=== PATIENT | male | born 1945 | race Caucasian/White ===

== ENCOUNTER 2023-12-16 08:31 | Day surgery (SDC) | payer MEDICARE, OTHER, SELFPAY ==
[2023-12-08 08:06] VITALS: BMI 32.7
[2023-12-16] VITALS (20 sets, daily range): BP systolic 103–176; BP diastolic 56–115; BMI 31.9
--- NOTE | 2023-12-16 10:25 | ITS.CL.CATH ---
[facility] - Catheterization
Cardiac Catheterization
Procedure Report:
CARDIAC CATHETERIZATION REPORT
Date of Procedure: 12/16/2019
Referring: Tigist Saenz MD
Indication: Angina with abnormal stress test
HEMODYNAMIC DATA
AO: 144/74
LV: 144/16
LEFT VENTRICULOGRAPHY: Inferobasal akinesis extending to the mid inferior wall with otherwise hyperdynamic wall motion with EF 57%
CORONARY ANGIOGRAPHY
Dominance: Right
Left Main: Normal
LAD: Mild luminal irregularities in the proximal and mid LAD. There is a 30% distal LAD stenosis. The large first diagonal branch has a long 30-40% proximal stenosis
Circumflex: The circumflex gives rise to a large OM1, a twig like OM 2, and a medium sized bifurcating OM 3 before terminating in the AV groove with a tiny posterolateral branch. There is 80% distal circumflex stenosis just proximal to the takeoff
of OM 3. There is 40% ostial OM1 stenosis and 30% mid OM1 stenosis.
RCA: The RCA is occluded in the midportion. The RPDA fills via [id number] collaterals with faint flow into a posterolateral branch
Angioplasty: At the conclusion the diagnostic study, we proceeded with PCI of the distal circumflex 80% stenosis. Heparin was used for anticoagulation. Plavix 600 mg was administered the procedure conclusion. A 6 Kosovan EBU 3.5 guide catheter was
used. A BMW wire was passed into the OM 3 with surprising ease. Predilatation was accomplished with a 2.25 x 8 NC Euphora to 12 alecia. A 3.0 x 12 [employer] [place] JOSÉ MIGUEL was deployed across the lesion into OM 3 at 15 alecia then postdilated with a 3.25 NC
Euphora to 15 alecia proximally and 10 alecia distally. The final angiographic result was outstanding. There were no procedural complications.
Closure Device: None-the procedure was performed via the right radial artery. The Silvano's test was normal prior to the procedure.
Radiation (mGy): 730
DAP (cm2.Gy): 61.9
Fluoroscopy time: 4.9 minutes
CONCLUSIONS
1: Inferior akinesis with EF 57%
2: Multivessel CAD as described. There would be no survival advantage to CABG as the LAD proper does not have significant disease. Accordingly, we proceeded with intervention to treat the distal circumflex stenosis
3. Successful stenting of 80% distal circumflex lesion using 3.0 x 12 [employer] [place] JOSÉ MIGUEL with outstanding angiographic result
4. Recommend 1 week of triple therapy (Eliquis, Plavix, aspirin) then stop aspirin and treat with Eliquis and Plavix for 12 months after which time aspirin can be resumed and Plavix stopped. Will increase rosuvastatin to 20mg with goal LDL <70 and
ideally near 55
Copy to: Tigist Saenz MD, Chris Tillman, DO
Dalton Dobbins MD, [facility], [facility]
[2023-12-16 13:22] LABS: ACT-LR - POC > 397 Seconds (116-155)
--- NOTE | 2023-12-16 14:19 | W.PN.UPDATE ---
Update Note
Progress Note Update
78 yo WM s/p PCI LCx (same day). He feels good, no cp, sob, kimi diet, voiding, amb w/o dizziness, EKG Afib with SVR no sig ST changes, R rad site c/d/i. He will be on triple therapy asa, plavix and eliquis for 1 week then stop asa. He will increase
rosuvastatin to 20mg daily. Cardiac rehab c/s. Activity restrictions reviewed. He will f/u Dr. Saenz in 2-4 weeks. He is for d/c home after 315pm.
CONCLUSIONS
1: Inferior akinesis with EF 57%
2: Multivessel CAD as described. There would be no survival advantage to CABG as the LAD proper does not have significant disease. Accordingly, we proceeded with intervention to treat the distal circumflex stenosis
3. Successful stenting of 80% distal circumflex lesion using 3.0 x 12 [employer] [place] JOSÉ MIGUEL with outstanding angiographic result
4. Recommend 1 week of triple therapy (Eliquis, Plavix, aspirin) then stop aspirin and treat with Eliquis and Plavix for 12 months after which time aspirin can be resumed and Plavix stopped. Will increase rosuvastatin to 20mg with goal LDL <70 and
ideally near 55
Copy to: Tigist Saenz MD, Chris Tillman, DO
== END 2023-12-16 15:15 | disposition home or self-care (01) ==
LOC: CATH 08:31
PROVIDERS: ATTENDING PHYSICIAN Internal Medicine Cardiovascular Disease; FAMILY PHYSICIAN Family Medicine; OTHER PHYSICIAN Internal Medicine Cardiovascular Disease
DX: I25.119 Atherosclerotic heart disease of native coronary artery with unspecified angina pectoris (principal); I25.84 Coronary atherosclerosis due to calcified coronary lesion; I10 Essential (primary) hypertension; E66.9 Obesity, unspecified; R73.03 Prediabetes; R06.09 Other forms of dyspnea; R07.89 Other chest pain; I48.19 Other persistent atrial fibrillation; I70.0 Atherosclerosis of aorta; Z68.32 Body mass index [BMI] 32.0-32.9, adult; Z86.711 Personal history of pulmonary embolism; Z86.718 Personal history of other venous thrombosis and embolism; M41.9 Scoliosis, unspecified; G62.9 Polyneuropathy, unspecified; K22.70 Barrett's esophagus without dysplasia; K21.9 Gastro-esophageal reflux disease without esophagitis; Z85.46 Personal history of malignant neoplasm of prostate; Z90.79 Acquired absence of other genital organ(s)
CPT/HCPCS: 93005; 93458; C1725; C1769; C1874; C1894; C9600; Q9967

== ENCOUNTER 2024-03-18 10:00 | Emergency (ER) | payer MEDICARE, OTHER, SELFPAY ==
[2024-03-18 10:04] VITALS: BP 161/90
[2024-03-18 10:43] VITALS: BMI 30.4
[2024-03-18 10:48] VITALS: BP 135/83
--- NOTE | 2024-03-18 10:59 | EDRN ---
IV VAT RN paged at this time. After 2 attempts unable to get IV access.
[2024-03-18 11:00] VITALS: BP 166/84
--- NOTE | 2024-03-18 11:02 | EDRN ---
Dr. Carlos in room w/ pt. BOth arms wrapped in warm blankets as requested by IV VAT KAREN Pierce.
--- NOTE | 2024-03-18 11:17 | EDRN ---
VAT RN Kari in room w/ pt attempting IV access.
[2024-03-18 11:26] LABS: Glucose - Point of Care 120 mg/dl (70-99)
[2024-03-18] MEDS: NSS 1000 IV (11:29)
[2024-03-18 11:40] LABS: % Basophils 0.4 % (0-2); % Immature Granulocytes 0.4 % (0-0.5); % Lymphocytes 16.1 % (20.5-51.1); % Monocytes 11.3 % (1.7-9.3); % Neutrophils 69.8 % (42.2-75.2); Absolute Eosinophils 0.1 10^3/uL (0-0.7); Absolute Lymphocytes 1.1 10^3/uL (1.2-3.4); Absolute Monocytes 0.8 10^3/uL (0.1-0.6); Absolute Neutrophils 4.8 10^3/uL (1.4-6.5); Hematocrit 41.9 % (39.0-52.0); Hemoglobin 14.6 g/dL (13.0-18.0); Mean Corp Hgb Conc. 34.8 g/dL (33.0-37.0); Mean Corpuscular Hgb 29.9 pg (27.0-31.0); Mean Corpuscular Volume 85.7 fL (80.0-94.0); Mean Platelet Volume 10.8 fL (7.4-10.4); Nucleated Red Blood Cells % 0 % (-); Platelet Count 177 10^3/uL (130-400); Red Blood Cell Count 4.89 10^6/uL (4.70-6.10); Red Cell Dist. Width 12.7 % (11.5-14.5); White Blood Cell Count 6.9 10^3/uL (4.8-10.8)
[2024-03-18 11:45] LABS: ALT (SGPT) 25 U/L (0-50); AST (SGOT) 25 U/L (17-59); Albumin 4.3 g/dl (3.5-5.0); Alkaline Phosphatase 59 U/L (38-126); Blood Urea Nitrogen 21 mg/dl (9-20); Calcium 9.6 mg/dl (8.4-10.2); Carbon Dioxide 29 mmol/L (22-30); Chloride 104 mmol/L (98-107); Estimated Creatinine Clearance 99 ml/min; Glucose 115 mg/dl (70-99); Potassium 4.6 mmol/L (3.5-5.1); Sodium 143 mmol/L (135-145); Total Bilirubin 0.8 mg/dl (0.2-1.3); Total Protein 6.8 g/dl (6.3-8.2); eGFR > 60.00
[2024-03-18 11:46] VITALS: BP 155/92
[2024-03-18 12:00] VITALS: BP 138/95
--- NOTE | 2024-03-18 13:22 | EDRN ---
Pt's friend came out of room to request for pt about his status. This RN TT'd Dr. Carlos at this time.
--- NOTE | 2024-03-18 13:23 | EDRN ---
Dr. Carlos responded that he will be over to see pt in a few minutes.
[2024-03-18 13:24] VITALS: BP 188/87
--- NOTE | 2024-03-18 13:27 | EDRN ---
Pt was asking about why the CT scan was done and was informed by this RN that his symptoms of dizziness and gait dysfunction would warrant a CT scan to look at the brain as the symptoms are neurological.
--- NOTE | 2024-03-18 13:39 | ED.GENMED ---
History of Present Illness
General
Chief Complaint: Dizziness
Time Seen by Provider: 03/18/24 10:57
History of Present Illness
History of Present Illness:
HPI: The patient presents with dizziness. He woke up this morning feeling well around 7:30 AM and later on in the morning had rather debilitating dizziness. At 1 point he fell to the side. He has no significant dizziness at rest.
EXAM:
GENERAL: Well appearing in no distress
HEENT: Moist oral mucosa
CARDIOVASCULAR: No murmurs, bradycardic and slightly irregular, No chest wall tenderness
PULMONARY: No respiratory distress, breath sounds are clear and equal
ABDOMEN: Soft with no peritoneal signs, no tenderness
NEUROLOGIC: Excellent strength all extremities, no coordination deficits, normal finger-nose testing
PSYCHIATRIC: Appropriate mental status, normal insight and judgement
EXTREMITIES: Nontender, no edema, moves all extremities equally
SKIN: No rash, no lesions
TIME OF INITIAL ENCOUNTER: 11 AM
NUMBER AND COMPLEXITY OF PROBLEMS ADDRESSED AT THE ENCOUNTER
� Chronic conditions affecting care: Atrial fibrillation on Eliquis
� Acute Exacerbation and/or Progression of Chronic Illness: This is an acute problem
� Differential Diagnosis includes: Positional vertigo, doubt CVA as he has an NIHSS of 0, labyrinthitis
AMOUNT AND/OR COMPLEXITY OF DATA TO BE REVIEWED AND ANALYZED
� I performed an independent evaluation of and my interpretation is:
EKG: A-fib 57, left axis deviation, no significant change from 03/18/2024
CT: Head CT shows no acute abnormality
X-rays:
Laboratory Studies: CBC normal, chemistries unremarkable
Other:
� Review of other/old records: I reviewed records, the patient had a cath this past September that showed inferior akinesis with an EF of 57%, a stent was placed in the distal circumflex
� Clinical information was obtained by an independent historian: Spoke to friend at bedside
� Prescriptions/Medications Considered but not given:
� Further testing considered but not performed:
RISK OF COMPLICATIONS AND/OR MORBIDITY OR MORTALITY OF PATIENT MANAGEMENT
� Social determinants of health affecting care: Lives at home
� Discussion with other providers:
� Escalation of care including admission/observation vs risk of discharge considered: Given patient's age and the fact that he is on Eliquis, CT imaging obtained which was unremarkable. On reassessment at 1:45 PM, the patient is
well-appearing. He remains to have a stroke scale of 0. He does not appear to be in any distress.
Phy Exam
Physical Exam
Physical Exam:
See HPI
Course
Orders/Labs/Results
Orders:
Orders
03/18/24 10:50
Cardiac Monitoring- Treatment ONCE
IV Insert/Care/Rem.- Treatment PRN
03/18/24 11:01
Electrocardiogram (*1) Urgent
Reason for Study: Chest Pain
EKG- Treatment ONCE
03/18/24 11:08
0.9% Sodium Chloride 1000 ml [Nss] 1,000 ml IV BOLUS
03/18/24 11:09
CT Head W/o Iv Contrast Urgent
Comment:
Reason For Exam: severe dizzy; fell to one side
03/18/24 11:21
Complete Blood Count/With Diff Urgent
Comprehensive Metabolic Panel Urgent
Abnormal Lab Results
03/18/24 03/18/24
11:21 11:26
MPV 10.8 H fL
(7.4-10.4)
Absolute Lymphs (auto) 1.1 L 10^3/uL
(1.2-3.4)
Absolute Monos (auto) 0.8 H 10^3/uL
(0.1-0.6)
Lymphocytes % 16.1 L %
(20.5-51.1)
Monocytes % 11.3 H %
(1.7-9.3)
BUN 21 H mg/dl
(9-20)
Glucose 115 H mg/dl
(70-99)
POC Glucose 120 H mg/dl
(70-99)
03/18/24 11:21
03/18/24 11:21
Vital Signs
Initial and Last Documented VS:
Initial Vital Signs
Temp Pulse Resp BP Pulse Ox
99.1 F 65 18 161/90 97
03/18/24 10:04 03/18/24 10:04 03/18/24 10:04 03/18/24 10:04 03/18/24 10:04
Last Documented Vital Signs
Temp Pulse Resp BP Pulse Ox
99.1 F 64 16 188/87 98
03/18/24 10:04 03/18/24 13:24 03/18/24 13:24 03/18/24 13:24 03/18/24 13:24
*Critical Care Note
Total Time (30-74mins, 75-104mins- exclusive of procedures): Not Applicable
ED Attending Note
-
Portions of this chart may have been created with voice recognition software.� Occasional wrong word or��sound alike� substitutions may have occurred due to the inherent limitations of voice recognition software.
Discharge Plan
Departure
Patient Disposition: Home (Routine Discharge)
Date of Disposition: 03/18/24
Time of Disposition: 13:50
Patient with high blood pressure during this ER visit?: Yes
Discharge Problem:
Dizziness
Instructions: Dizziness, BLOOD PRESSURE
Prescriptions:
No Action
acetaminophen [Tylenol] 325 mg Tablet
650 mg PO Q4H PRN (Reason: pain)
carvedilol 12.5 mg Tablet
12.5 mg PO QPM
carvedilol 12.5 mg Tablet
18.75 mg PO DAILY
lisinopril-hydrochlorothiazide 20-12.5 mg Tablet
2 tab PO DAILY
garlic 1,000 mg Capsule
2,000 mg PO DAILY
ascorbic acid (vitamin C) [Vitamin C] 500 mg Tablet
500 mg PO DAILY
vitamin B complex Capsule
1 cap PO DAILY
omega 4-unv-gan-fish oil [Fish Oil] 1,000 mg (120 mg-180 mg) Capsule
2 cap PO DAILY
Eliquis 5 mg Tablet
5 mg PO BID
biotin 1,000 mcg Tablet,Chewable
1,000 mcg PO DAILY
Glucosamine Chondroitin 550-30-1 mg Capsule
1 cap PO BID
One-A-Day Men's 50 Plus 400-370 mcg Tablet
1 tab PO DAILY
Beet Root
1,000 mg PO DAILY
Christiano-Pop
25,000 unit PO .WITH MEALS
lutein
20 mg PO DAILY
magnesium
420 mg PO DAILY
turmeric
1,000 mg PO DAILY
zinc
50 mg PO DAILY
aspirin 81 mg tablet,chewable
81 mg PO DAILY Qty: 1 0RF
Rx Instructions:
stop after 1 week
clopidogrel 75 mg tablet
75 mg PO DAILY Qty: 90 10RF
rosuvastatin 20 mg tablet
20 mg PO DAILY Qty: 90 5RF
nitroglycerin 0.4 mg tablet, sublingual
0.4 mg sublingual [id number] PRN (Reason: chest pain) Qty: 25 5RF
omeprazole 40 mg Capsule,Delayed Release(Dr/Ec)
40 mg PO BID
Referrals:
Chris Tillman DO [Family Provider] -
Activity Restrictions/Additional Instructions:
The cause of your symptoms is unclear. Your white blood cell count is 6.9, hemoglobin level is normal, chemistries are unremarkable. The CAT scan of the brain does not show any acute abnormality such as bleeding or mass. Return here if worse.
Interventions
Interventions:
*Risk Screen - Suicide Last Done: 03/18/24 10:44
*General Assessment Last Done: 03/18/24 10:44
*Neglect/Abuse Screening Last Done: 03/18/24 10:44
ED- Fall Risk Assessment Last Done: 03/18/24 10:45
*ED COVID-19 Vaccine History Last Done: 03/18/24 10:44
ED- Neurological Assessment Last Done: 03/18/24 11:13
ED- Cardiac Assessment Last Done: 03/18/24 11:13
ED Swallowing Screen Last Done: 03/18/24 11:17
Discharge Date and Time
Print Language: BRITISH
--- NOTE | 2024-03-18 13:43 | EDRN ---
Dr. Carlos in room w/pt at this time.
== END 2024-03-18 14:00 | disposition home or self-care (01) ==
LOC: EMR 10:00
PROVIDERS: EMERGENCY PHYSICIAN Emergency Medicine; FAMILY PHYSICIAN Family Medicine
DX: R42 Dizziness and giddiness (principal); W19.XXXA Unspecified fall, initial encounter; I48.91 Unspecified atrial fibrillation; Z79.01 Long term (current) use of anticoagulants
CPT/HCPCS: 99284; 96360; 70450; 80053; 82962; 85025; 93005

== ENCOUNTER → 2024-03-28 14:25 | Outpatient (REF) | payer MEDICARE, OTHER, SELFPAY | LOC: HWRAD 14:25 | PROVIDERS: ATTENDING PHYSICIAN Internal Medicine Gastroenterology; FAMILY PHYSICIAN Family Medicine | DX: R10.13 Epigastric pain (principal) | CPT/HCPCS: 76700 ==

== ENCOUNTER → 2024-04-05 07:11 | Outpatient (REF) | payer MEDICARE, OTHER, SELFPAY | LOC: MRI 07:11 | PROVIDERS: ATTENDING PHYSICIAN Internal Medicine Gastroenterology; FAMILY PHYSICIAN Family Medicine | DX: R63.4 Abnormal weight loss (principal) | CPT/HCPCS: 74183; A9575 ==

== ENCOUNTER → 2024-04-16 13:50 | Outpatient (REF) | payer MEDICARE, OTHER, SELFPAY | LOC: HWRAD 13:50 | PROVIDERS: ATTENDING PHYSICIAN Internal Medicine Critical Care Medicine; FAMILY PHYSICIAN Family Medicine | DX: R93.89 Abnormal findings on diagnostic imaging of other specified body structures (principal) | CPT/HCPCS: 71250 ==

== ENCOUNTER → 2025-03-22 08:09 | Outpatient (REF) | payer MEDICARE, OTHER, SELFPAY | LOC: HWRAD 08:09 | PROVIDERS: ATTENDING PHYSICIAN Internal Medicine Critical Care Medicine; FAMILY PHYSICIAN Family Medicine | DX: R91.1 Solitary pulmonary nodule (principal) | CPT/HCPCS: 71250 ==